=== PATIENT | female | born 1995 | race African-American/Black ===

== ENCOUNTER 2017-12-29 00:20 | Observation (INO) | payer MEDICAID ==
[~2017-12-29 00:20] MED LIST: ALBU18
[2017-12-29] MEDS ORDERED: ASPI-231 PO (01:27)
[2017-12-29] MEDS ORDERED: LEVO50TA7 PO (01:27)
[2017-12-29] MEDS ORDERED: PREN-153 OR (01:27)
[2017-12-29 03:50] LABS: Alcohol, Urine < 3.0 mg/dL (0-5); Amphetamine Screen, Urine NEGATIVE (NEGATIVE); Barbiturate Scree,Urine NEGATIVE (NEGATIVE); Benzodiazephine Screen, Urine NEGATIVE (NEGATIVE); Cannabinoid Screen, Urine NEGATIVE (NEGATIVE); Cocaine Screen, Urine NEGATIVE (NEGATIVE); Opiate Scree,Urine NEGATIVE (NEGATIVE); Phencyclidine Screen, Urine NEGATIVE (NEGATIVE)
== END 2017-12-29 01:15 | disposition home or self-care (01) | DRG 781 ==
LOC: LDRP 00:20
PROVIDERS: ADMIT Obstetrics & Gynecology; ATTEND Obstetrics & Gynecology
DX: O26.892 Other specified pregnancy related conditions, second trimester (principal); R10.2 Pelvic and perineal pain; Z91.018 Allergy to other foods; Z3A.20 20 weeks gestation of pregnancy
CPT/HCPCS: 59025; 80307; 81002; G0378

== ENCOUNTER 2018-10-02 19:22 | Emergency (ER) | payer MEDICAID ==
[~2018-10-02] VITALS: Ht 215.9 cm; Wt 117.9 kg
[~2018-10-02 19:22] MED LIST changes: +ASPI-231 PO; +LEVO50TA7 PO; +PREN-153 OR
[2018-10-02 19:55] VITALS: BP 142/84
== END 2018-10-02 21:03 | disposition home or self-care (01) ==
LOC: ER 19:25
DX: L03.011 Cellulitis of right finger (principal); J45.909 Unspecified asthma, uncomplicated; Z91.018 Allergy to other foods